=== PATIENT | female | born 1980 | race Caucasian/White ===

== ENCOUNTER 2018-11-11 16:10 | Emergency (ER) | payer MEDICAID ==
[~2018-11-11] VITALS: Ht 160 cm; Wt 76.8 kg
[2018-11-11 18:01] VITALS: BP 114/76
== END 2018-11-11 18:01 | disposition home or self-care (01) ==
LOC: ED 16:10
DX: M65.4 Radial styloid tenosynovitis [de Quervain] (principal)

== ENCOUNTER 2020-03-04 07:16 | Emergency (ER) | payer MEDICAID ==
[~2020-03-04] VITALS: Ht 162.6 cm; Wt 74.4 kg
[2020-03-04 07:25] VITALS: BP 125/62; Ht 162.6 cm; Wt 74.4 kg
== END 2020-03-04 08:42 | disposition home or self-care (01) ==
LOC: ED 07:16
DX: M54.5 Low back pain (principal); M62.830 Muscle spasm of back
CPT/HCPCS: J1885